=== PATIENT | male | born 1945 | race Caucasian/White ===

== ENCOUNTER → 2024-01-06 08:20 | Outpatient (REF) | payer BC, SELFPAY ==
[2024-01-06 11:57] LABS: HDL Cholesterol 48 mg/dl; LDL Cholesterol, Calculated 46 mg/dl; Total Cholesterol 136 mg/dl (50-199); Triglyceride 214 mg/dl (10-149); Very Low Density Lipoprotein 42 mg/dl (0-30)
== END ==
LOC: HWLAB 08:20
PROVIDERS: ATTENDING PHYSICIAN Internal Medicine Cardiovascular Disease; FAMILY PHYSICIAN Hospitalist
DX: I25.10 Atherosclerotic heart disease of native coronary artery without angina pectoris (principal)
CPT/HCPCS: 36415; 80061

== ENCOUNTER → 2024-06-17 07:04 | Outpatient (REF) | payer BC, SELFPAY ==
[2024-06-17 10:23] LABS: Glycohemoglobin (HgbA1c) 7.1 % (4.0-5.6)
[2024-06-17 10:34] LABS: ALT (SGPT) 30 U/L (0-50); AST (SGOT) 25 U/L (17-59); Albumin 4.7 g/dl (3.5-5.0); Alkaline Phosphatase 50 U/L (38-126); Blood Urea Nitrogen 40 mg/dl (9-20); Calcium 9.1 mg/dl (8.4-10.2); Carbon Dioxide 24 mmol/L (22-30); Chloride 96 mmol/L (98-107); Glucose 156 mg/dl (70-99); HDL Cholesterol 44 mg/dl; LDL Cholesterol, Calculated 36 mg/dl; Potassium 4.8 mmol/L (3.5-5.1); Sodium 135 mmol/L (135-145); Total Bilirubin 0.5 mg/dl (0.2-1.3); Total Cholesterol 123 mg/dl (50-199); Total Protein 6.9 g/dl (6.3-8.2); Triglyceride 215 mg/dl (10-149); Very Low Density Lipoprotein 43 mg/dl (0-30); eGFR > 60.00
[2024-06-17 11:09] LABS: Microalbumin, Random Urine 3.9 mg/dl (0.6-1.7); Microalbumin/creatinine Ratio 76.8 mg/g
== END ==
LOC: HWLAB 07:04
PROVIDERS: ATTENDING PHYSICIAN Internal Medicine Endocrinology, Diabetes & Metabolism; FAMILY PHYSICIAN Hospitalist; REFERRING PHYSICIAN Internal Medicine Cardiovascular Disease
DX: E11.40 Type 2 diabetes mellitus with diabetic neuropathy, unspecified (principal); I25.10 Atherosclerotic heart disease of native coronary artery without angina pectoris
CPT/HCPCS: 36415; 80053; 80061; 82043; 82570; 83036

== ENCOUNTER → 2024-09-21 07:26 | Outpatient (REF) | payer BC, SELFPAY ==
[2024-09-21 09:44] LABS: % Basophils 0.2 % (0-2); % Immature Granulocytes 0.4 % (0-0.5); % Lymphocytes 21.6 % (20.5-51.1); % Monocytes 9.9 % (1.7-9.3); % Neutrophils 64.9 % (42.2-75.2); Absolute Eosinophils 0.1 10^3/uL (0-0.7); Absolute Monocytes 0.5 10^3/uL (0.1-0.6); Hematocrit 38.2 % (39.0-52.0); Hemoglobin 12.5 g/dL (13.0-18.0); Mean Corp Hgb Conc. 32.7 g/dL (33.0-37.0); Mean Corpuscular Hgb 30.4 pg (27.0-31.0); Mean Corpuscular Volume 92.9 fL (80.0-94.0); Mean Platelet Volume 9.5 fL (7.4-10.4); Nucleated Red Blood Cells % 0 % (-); Platelet Count 181 10^3/uL (130-400); Red Blood Cell Count 4.11 10^6/uL (4.70-6.10); Red Cell Dist. Width 13.4 % (11.5-14.5); White Blood Cell Count 4.6 10^3/uL (4.8-10.8)
[2024-09-21 09:46] LABS: ALT (SGPT) 29 U/L (0-50); AST (SGOT) 26 U/L (17-59); Albumin 4.8 g/dl (3.5-5.0); Alkaline Phosphatase 36 U/L (38-126); Blood Urea Nitrogen 27 mg/dl (9-20); Calcium 9.4 mg/dl (8.4-10.2); Carbon Dioxide 28 mmol/L (22-30); Chloride 97 mmol/L (98-107); Glucose 146 mg/dl (70-99); Potassium 4.5 mmol/L (3.5-5.1); Sodium 136 mmol/L (135-145); Total Bilirubin 0.5 mg/dl (0.2-1.3); Total Protein 7.3 g/dl (6.3-8.2); eGFR > 60.00
[2024-09-21 10:40] LABS: Microalbumin, Random Urine 7.4 mg/dl (0.6-1.7); Microalbumin/creatinine Ratio 120.9 mg/g
[2024-09-21 10:43] LABS: Glycohemoglobin (HgbA1c) 7.2 % (4.0-5.6)
== END ==
LOC: HWLAB 07:26
PROVIDERS: ATTENDING PHYSICIAN Hospitalist
DX: E11.40 Type 2 diabetes mellitus with diabetic neuropathy, unspecified (principal)
CPT/HCPCS: 36415; 80053; 82043; 82570; 83036; 85025

== ENCOUNTER → 2024-12-23 08:23 | Outpatient (REF) | payer BC, SELFPAY ==
[2024-12-23 10:35] LABS: ALT (SGPT) 29 U/L (0-50); AST (SGOT) 27 U/L (17-59); Albumin 5.1 g/dl (3.5-5.0); Alkaline Phosphatase 43 U/L (38-126); Blood Urea Nitrogen 38 mg/dl (9-20); Calcium 9.4 mg/dl (8.4-10.2); Carbon Dioxide 28 mmol/L (22-30); Chloride 98 mmol/L (98-107); Glucose 130 mg/dl (70-99); HDL Cholesterol 44 mg/dl; LDL Cholesterol, Calculated 30 mg/dl; Potassium 4.8 mmol/L (3.5-5.1); Sodium 138 mmol/L (135-145); Total Bilirubin 0.6 mg/dl (0.2-1.3); Total Cholesterol 103 mg/dl (50-199); Total Protein 7.5 g/dl (6.3-8.2); Triglyceride 147 mg/dl (10-149); Very Low Density Lipoprotein 29 mg/dl (0-30); eGFR > 60.00
[2024-12-23 11:04] LABS: TSH 3.27 uIU/ml (0.47-4.68)
[2024-12-23 11:08] LABS: Microalbumin, Random Urine 9.3 mg/dl (0.6-1.7); Microalbumin/creatinine Ratio 122.2 mg/g
[2024-12-23 12:13] LABS: Glycohemoglobin (HgbA1c) 7.3 % (4.0-5.6)
== END ==
LOC: HWLAB 08:23
PROVIDERS: ATTENDING PHYSICIAN Internal Medicine Endocrinology, Diabetes & Metabolism; FAMILY PHYSICIAN Hospitalist
DX: E11.40 Type 2 diabetes mellitus with diabetic neuropathy, unspecified (principal)
CPT/HCPCS: 36415; 80053; 80061; 82043; 82570; 83036; 84443

== ENCOUNTER → 2025-07-08 08:04 | Outpatient (REF) | payer BC, SELFPAY ==
[2025-07-08 10:27] LABS: Hematocrit 39.5 % (39.0-52.0); Hemoglobin 13.1 g/dL (13.0-18.0); Mean Corp Hgb Conc. 33.2 g/dL (33.0-37.0); Mean Corpuscular Volume 91.9 fL (80.0-94.0); Nucleated Red Blood Cells % 0 % (-); Platelet Count 145 10^3/uL (130-400); Red Cell Dist. Width 13.3 % (11.5-14.5)
[2025-07-08 10:35] LABS: Blood Urea Nitrogen 23 mg/dl (9-20); Calcium 8.9 mg/dl (8.4-10.2); Carbon Dioxide 27 mmol/L (22-30); Chloride 105 mmol/L (98-107); Glucose 135 mg/dl (70-99); Potassium 4.5 mmol/L (3.5-5.1); Sodium 139 mmol/L (135-145); eGFR > 60.00
[2025-07-08 10:47] LABS: Microalb - Urine Creatinine 124.300 mg/dl
[2025-07-08 10:57] LABS: Microalbumin, Random Urine 16.7 mg/dl (0.6-1.7)
[2025-07-08 11:33] LABS: Glycohemoglobin (HgbA1c) 7.4 % (4.0-5.6)
== END ==
LOC: HWLAB 08:04
PROVIDERS: ATTENDING PHYSICIAN Hospitalist; REFERRING PHYSICIAN Internal Medicine Endocrinology, Diabetes & Metabolism
DX: E11.40 Type 2 diabetes mellitus with diabetic neuropathy, unspecified (principal)
CPT/HCPCS: 36415; 80048; 82043; 82570; 83036; 85025